=== PATIENT | female | born 2000 | race Caucasian/White ===

== ENCOUNTER 2023-10-31 17:49 | Inpatient (IN) ==
[2023-10-31] MEDS ORDERED: Lidocaine 1% VIAL 10 MG/ML 30 ML VIAL INJ PRN (19:21)
[2023-10-31 19:59] LABS: Urine Benzodiazepine Screen None Detected (None Detect); Urine Cannabinoids Screen None Detected (None Detect); Urine Opiates Screen None Detected (None Detect)
[2023-10-31] MEDS: miSOPROStol 100 mcg TAB PO SCH (20:28)
[2023-10-31 21:06] LABS: ABS Basophils 0.1 10^3/uL (0.0-0.1); ABS Eosinophils 0.1 10^3/uL (0.0-0.5); ABS Lymphocytes 1.7 10^3/uL (1.0-4.8); ABS Monocytes 0.6 10^3/uL (0.0-0.9); ABS Neutrophils 7.1 10^3/uL (1.5-7.6); ABS Nucleated RBC 0.01 10^3/ul; Hematocrit 30.2 % (35-45); Hemoglobin 10.5 g/dL (11.5-14.3); Mean Corpuscular Hgb Conc 34.9 g/dL (31-36); Mean Corpuscular Volume 86.1 fL (80-97); Mean Platelet Volume 9.8 fL (7.5-11.2); Nucleated Red Blood Cells % 0.1 %/100WBC (0.0-0.8); Platelet Count 198 10^3/uL (150-450); Red Blood Count 3.51 10^6/uL (3.63-4.92); Red Cell Distribution Width 14.2 % (12-17); White Blood Count 9.5 10^3/uL (3.8-11.8)
[2023-10-31] MEDS: Dinoprostone 10 MG VAG.SUPP VAGINAL ONE (22:25)
[2023-11-01] MEDS: miSOPROStol 100 mcg TAB VAGINAL SCH (09:05)
[2023-11-01 09:34] LABS: Hemoglobin 10.5 g/dL (11.5-14.3); Mean Corpuscular Hemoglobin 29.8 pg (27-33); Mean Platelet Volume 9.2 fL (7.5-11.2); Platelet Count 169 10^3/uL (150-450); Red Blood Count 3.52 10^6/uL (3.63-4.92); Red Cell Distribution Width 14.2 % (12-17); White Blood Count 9.9 10^3/uL (3.8-11.8)
[2023-11-01 10:29] LABS: Albumin/Globulin Ratio 1.5 (1-3); Calcium 8.3 mg/dL (8.6-10.3); Creatinine, Serum 0.53 mg/dL (0.51-0.95); Potassium 3.8 mmol/L (3.5-5.0); Total Bilirubin 0.3 mg/dL (0.2-1.0); eGFR CKD-EPI 131.5 (>60)
[2023-11-01] MEDS: Lactated Ringers 1000 ml BAG 1,000 ML IV ONE ×2 (12:59→22:18)
[2023-11-01] MEDS: Calcium Carb (TUMS) 500 mg CHEW TAB PO PRN (14:08)
[2023-11-01] MEDS: Famotidine IV 10 MG/ML 2 ml VIAL (20 mg) IV SLOW PU SCH (14:09)
[2023-11-01] MEDS ORDERED: Calcium Gluconate 1 GM/10 ML VIAL (in Pyxis) IV PUSH PRN (19:54)
[2023-11-01] MEDS: Labetalol IV 5 MG/ML 20 ml VIAL IV PUSH PRN (20:40)
[2023-11-01] MEDS ORDERED: Sodium Citrate/Citric Acid LIQ 15 ML UDC PO PRN (21:30)
[2023-11-01] MEDS ORDERED: Phenylephrine 40 mcg/mL 10mL (400mcg) SYRINGE IV PUSH PRN ×2 (21:30)
[2023-11-01] MEDS: Lactated Ringers 1000 ml BAG 1,000 ML IV SCH (22:17)
[2023-11-01] MEDS: Lidocaine 1.5% EPI 1:200,000 30 ML SDV ONE (22:18)
[2023-11-01] MEDS: OBEPIDURAL (200 ML) 200 ML EPIDURAL ONE (22:18)
[2023-11-01] MEDS: Oxytocin in LR 20,000 MILLI.UNIT/1,000 ML BAG IV SCH (22:18)
[2023-11-01 22:29] LABS: Hematocrit 30.3 % (35-45); Hemoglobin 10.3 g/dL (11.5-14.3); Mean Corpuscular Hemoglobin 28.9 pg (27-33); Mean Corpuscular Volume 85.1 fL (80-97); Mean Platelet Volume 9.4 fL (7.5-11.2); Platelet Count 172 10^3/uL (150-450); Red Blood Count 3.56 10^6/uL (3.63-4.92); Red Cell Distribution Width 14.5 % (12-17); White Blood Count 13.2 10^3/uL (3.8-11.8)
[2023-11-01] MEDS: OBEPIDURAL (200 ML) 200 ML EPIDURAL SCH (22:29)
[2023-11-01 22:31] LABS: Urine Appearance Clear; Urine Bilirubin Negative (Negative); Urine Blood Negative (Negative); Urine Color Colorless; Urine Glucose Negative (Negative); Urine Ketones Negative (Negative); Urine Nitrite Negative (Negative); Urine Protein Negative (Negative); Urine Specific Gravity 1.008 (1.002-1.030); Urine Urobilinogen Negative (Negative); Urine pH 6.5 (5.0-8.0)
[2023-11-01 23:27] LABS: Albumin 2.9 g/dL (3.2-5.2); Albumin/Globulin Ratio 1.4 (1-3); Calcium 8.3 mg/dL (8.6-10.3); Creatinine, Serum 0.6 mg/dL (0.51-0.95); Globulin 2.1 g/dL (2-4); Potassium 3.7 mmol/L (3.5-5.0); Total Bilirubin 0.4 mg/dL (0.2-1.0); eGFR CKD-EPI 127.7 (>60)
[2023-11-02] MEDS: Buffered Lidocaine 1% SYRIN 1 ml INTRADERM ONE (02:47)
[2023-11-02] MEDS: Lactated Ringers 1000 ml BAG 1,000 ML IV ONE (02:49)
[2023-11-02] MEDS: Lactated Ringers 1000 ml BAG 1,000 ML IV SCH (02:49)
[2023-11-02] MEDS ORDERED: Glycerin ADULT 2.4 gm SUPP PR PRN (12:25)
[2023-11-02] MEDS ORDERED: Lactated Ringers 1000 ml BAG 1,000 ML IV SCH (13:00)
[2023-11-02] MEDS: Dibucaine 1% OINT 28.35 GM TUBE PR PRN (13:33)
[2023-11-02] MEDS: Witch Hazel PAD JAR TOPICAL PRN (13:33)
[2023-11-02] MEDS: Lidocaine 1.5% EPI 1:200,000 30 ML SDV ONE (15:12)
[2023-11-02] MEDS: Oxytocin in LR 20,000 MILLI.UNIT/1,000 ML BAG IV SCH (15:13)
[2023-11-02] MEDS: Lidocaine 2% w/ EPI 1:200,000 MPF 20 ML SDV VIAL ONE (15:13)
[2023-11-02] MEDS: Magnesium Sulfate OB PREMIX 40 GM/1,000 ML BAG IVPB SCH (15:13)
[2023-11-02] MEDS: Magnesium Sulfate OB PREMIX 4 GM/100 ML BAG IV ONE (15:14)
[2023-11-03 06:18] LABS: ABS Eosinophils 0.1 10^3/uL (0.0-0.5); ABS Lymphocytes 1.4 10^3/uL (1.0-4.8); Eosinophil % 0.7 %; Hemoglobin 7.2 g/dL (11.5-14.3); Lymphocyte % 10.9 %; Mean Corpuscular Hemoglobin 29.4 pg (27-33); Mean Corpuscular Hgb Conc 34.3 g/dL (31-36); Mean Corpuscular Volume 85.5 fL (80-97); Mean Platelet Volume 9.1 fL (7.5-11.2); Platelet Count 157 10^3/uL (150-450); Red Blood Count 2.46 10^6/uL (3.63-4.92); Red Cell Distribution Width 14.2 % (12-17); White Blood Count 12.4 10^3/uL (3.8-11.8)
[2023-11-03] MEDS: Iron Sucrose 200 MG in NS 0.9% 100 ml BAG 100 ML IVPB ONE (09:50)
[2023-11-04 07:34] VITALS: BP 145/98
== END 2023-11-04 16:20 | disposition home or self-care (01) | DRG 560 ==
LOC: MCHOBOUT 17:49 → MCHOB 20:21
PROVIDERS: ADMIT Obstetrics & Gynecology; ATTEND Obstetrics & Gynecology

== ENCOUNTER 2023-11-06 19:04 | Observation (INO) ==
[2023-11-06 19:53] LABS: ABS Eosinophils 0.3 10^3/uL (0.0-0.5); ABS Lymphocytes 1.3 10^3/uL (1.0-4.8); ABS Monocytes 0.5 10^3/uL (0.0-0.9); ABS Neutrophils 7.5 10^3/uL (1.5-7.6); ABS Nucleated RBC 0.01 10^3/ul; Eosinophil % 2.8 %; Hematocrit 20.6 % (35-45); Lymphocyte % 13.3 %; Mean Corpuscular Hemoglobin 29.6 pg (27-33); Mean Corpuscular Hgb Conc 34.1 g/dL (31-36); Mean Corpuscular Volume 86.9 fL (80-97); Mean Platelet Volume 8.1 fL (7.5-11.2); Nucleated Red Blood Cells % 0.1 %/100WBC (0.0-0.8); Platelet Count 245 10^3/uL (150-450); Red Blood Count 2.38 10^6/uL (3.63-4.92); Red Cell Distribution Width 14.5 % (12-17); White Blood Count 9.6 10^3/uL (3.8-11.8)
[2023-11-06 19:59] LABS: INR 0.94 (0.85-1.14)
[2023-11-06 20:12] LABS: Albumin 2.9 g/dL (3.2-5.2); Albumin/Globulin Ratio 1.5 (1-3); Creatinine, Serum 0.63 mg/dL (0.51-0.95); Potassium 3.6 mmol/L (3.5-5.0); Total Bilirubin 0.3 mg/dL (0.2-1.0); Total Protein 4.9 g/dL (6.4-8.9); eGFR CKD-EPI 126.2 (>60)
[2023-11-06 21:02] LABS: High Sensitivity Troponin 1 Hr 105 pg/mL (<15)
[2023-11-06] MEDS: Iohexol 350 (CONTRAST) 500 ML MDV IV ONE (21:08)
[2023-11-06] MEDS: Lactated Ringers 1000 ml BAG 1,000 ML IV ONE (21:35)
[2023-11-07] MEDS ORDERED: Sulfur Hexaflouride MICROSPHR 25 MG VIAL IV PRN (01:11)
[2023-11-07 01:23] LABS: High Sensitivity Troponin 3 Hr 91 pg/mL (<15)
[2023-11-07] MEDS: Enoxaparin 40 MG/0.4 ML SYR SUBCUT SCH (02:05)
[2023-11-07 02:27] LABS: HDL Cholesterol 43.1 mg/dL
[2023-11-07] MEDS ORDERED: Calcium Carb (TUMS) 500 mg CHEW TAB PO PRN (07:36)
[2023-11-07 21:42] LABS: Hematocrit 24.2 % (35-45); Hemoglobin 8.1 g/dL (11.5-14.3)
[2023-11-08 06:31] LABS: ABS Eosinophils 0.2 10^3/uL (0.0-0.5); ABS Lymphocytes 1.4 10^3/uL (1.0-4.8); ABS Monocytes 0.5 10^3/uL (0.0-0.9); ABS Neutrophils 6.1 10^3/uL (1.5-7.6); ABS Nucleated RBC 0.02 10^3/ul; Eosinophil % 2.6 %; Hematocrit 22.9 % (35-45); Hemoglobin 7.8 g/dL (11.5-14.3); Lymphocyte % 16.5 %; Mean Corpuscular Hemoglobin 29.8 pg (27-33); Mean Corpuscular Hgb Conc 34.1 g/dL (31-36); Mean Corpuscular Volume 87.7 fL (80-97); Mean Platelet Volume 7.7 fL (7.5-11.2); Nucleated Red Blood Cells % 0.2 %/100WBC (0.0-0.8); Platelet Count 249 10^3/uL (150-450); Red Blood Count 2.61 10^6/uL (3.63-4.92); Red Cell Distribution Width 14.6 % (12-17); White Blood Count 8.2 10^3/uL (3.8-11.8)
[2023-11-08 06:54] LABS: Calcium 8.2 mg/dL (8.6-10.3); Creatinine, Serum 0.61 mg/dL (0.51-0.95); Magnesium 1.9 mg/dL (1.9-2.7); Potassium 3.6 mmol/L (3.5-5.0); eGFR CKD-EPI 127.2 (>60)
[2023-11-08] MEDS: Dibucaine 1% OINT 28.35 GM TUBE PR PRN (08:44)
[2023-11-08] MEDS: Witch Hazel PAD JAR TOPICAL SCH (11:04)
[2023-11-09 07:54] LABS: Hematocrit 22.9 % (35-45); Hemoglobin 7.6 g/dL (11.5-14.3)
[2023-11-09 15:40] LABS: Albumin 2.9 g/dL (3.2-5.2); Albumin/Globulin Ratio 1.5 (1-3); Calcium 8.3 mg/dL (8.6-10.3); Creatinine, Serum 0.57 mg/dL (0.51-0.95); Globulin 1.9 g/dL (2-4); Potassium 3.7 mmol/L (3.5-5.0); Total Bilirubin 0.4 mg/dL (0.2-1.0); Total Protein 4.8 g/dL (6.4-8.9); eGFR CKD-EPI 129.3 (>60)
[2023-11-09 17:44] VITALS: BP 138/84
== END 2023-11-09 18:45 | disposition home or self-care (01) ==
LOC: EDHOLD 19:04 → ED 19:04 → MEDTELE 11-07 20:16
PROVIDERS: ADMIT Hospitalist; ATTEND Hospitalist